=== PATIENT | male | born 1995 | race Caucasian/White ===

== ENCOUNTER 2017-06-11 04:31 | Emergency (ER) | payer SELFPAY ==
[~2017-06-11] VITALS: Ht 167.6 cm; Wt 59.1 kg
[~2017-06-11 04:31] MED LIST: NOCURR
[2017-06-11] MEDS ORDERED: IBUPROFEN 100 MG/5 ML SUSPENSION UDCUP PO ONE (05:15)
[2017-06-11] MEDS ORDERED: SULFAMETHOX/TRIMETH 800-160 MG/20 ML SUSPENSION ORAL SYRINGE PO ONE (05:15)
[2017-06-11] MEDS ORDERED: LIDOCAINE HCL 2% 5 ML JELLY TP ONE (05:15)
[2017-06-11] MEDS ORDERED: LIDOCAINE HCL 1% 10 ML VIAL ONE (05:34)
[2017-06-11] MEDS ORDERED: LIDOCAINE HCL 1% 10 ML VIAL INJ ONE (05:45)
[2017-06-11 06:24] VITALS: BP 132/85
== END 2017-06-11 06:26 | disposition home or self-care (01) ==
LOC: EMS 04:33
DX: L03.011 Cellulitis of right finger (principal); M65.141 Other infective (teno)synovitis, right hand
CPT/HCPCS: 10060; 73130; 96372; 99284; J0690; J3490